=== PATIENT | male | born 2000 | race Caucasian/White ===

== ENCOUNTER 2018-09-20 16:13 | Emergency (ER) | payer OTHER ==
[~2018-09-20] VITALS: Ht 195.6 cm; Wt 74.0 kg
[2018-09-20 16:17] VITALS: BP 142/82
== END 2018-09-20 17:06 | disposition home or self-care (01) ==
LOC: ED 16:42
DX: S01.01XA Laceration without foreign body of scalp, initial encounter (principal); F07.81 Postconcussional syndrome; W22.8XXA Striking against or struck by other objects, initial encounter; Y93.89 Activity, other specified; Y92.69 Other specified industrial and construction area as the place of occurrence of the external cause; Y99.0 Civilian activity done for income or pay
CPT/HCPCS: 99282